=== PATIENT | male | born 1970 ===

== ENCOUNTER 2017-04-23 02:22 | Emergency (ER) | payer OTHER ==
[~2017-04-23] VITALS: Ht 160 cm; Wt 108.9 kg
[2017-04-23 02:37] VITALS: BP 158/87
[2017-04-23] MEDS ORDERED: Lidocaine 2% 20mg/ml/Epi 0.005mg/ml 20ml vial INJ ONE (03:00)
[2017-04-23] MEDS ORDERED: KEFLEX500 MG ORAL (03:20)
[2017-04-23] MEDS ORDERED: NORCO 5-325 TA1 EAC1 ORAL (03:20)
[2017-04-23 03:27] VITALS: BP 141/91
--- NOTE | 2017-04-23 03:29 | Emergency Room Report ---
History of Present Illness General Chief Complaint: Skin Rash/Abscess Source: Patient Present Illness HPI Patient is a 47-year-old male who presented after increased neck pain for the past 7 days. Patient recently been seen by physician started on oral Bactrim. Patient had gradual onset of symptoms the patient noticed the area had become increasingly swollen. He denied any fever. Patient stated that he had some improvement temperature over the past 2 days. The patient reported having increased difficulty with movement of his neck. Allergies: Coded Allergies: No Known Allergies (Unverified , 04/23/17) Patient History Past Medical History: see triage record Reviewed Nursing Documentation: PMH: Agreed, PSxH: Agreed Nursing Documentation-PMH Past Medical History: No Stated History Review of Systems All Other Systems: negative except mentioned in HPI Physical Exam Vital Signs Date Time Temp Pulse Resp B/P (MAP) Pulse Ox O2 Delivery O2 Flow Rate FiO2 04/23/17 02:26 97.5 66 18 158/87 98 Room Air General Appearance: well appearing, no apparent distress, alert, GCS 15 Head: normocephalic, atraumatic ENT: hearing grossly normal, normal voice Neck: supple, limited range of motion Respiratory: no respiratory distress, speaking full sentences Gastrointestinal: normal bowel sounds Musculoskeletal: no calf tenderness Neurologic: normal inspection, alert, oriented x3, normal gait Psychiatric: mood/affect normal Skin: other - large fluctuance to posterior of neck. Procedures Incision and Drainage Incision and Drainage : Consent: Verbal Site: neck Blade Size: 15 I & D Procedure: betadine prep, sterile drapes applied, sterile dressing applied Wound Location: neck Wound's Depth, Shape: into muscle Wound Length (cm): 2 Wound Explored: clean Irrigated w/ Saline (ccs): 10 Anesthesia: Lidocaine w/ Epi Volume Anesthetic (ccs): 4 Patient Tolerated: Well Complications: None Medical Decision Making Diagnostic Impression: Primary Impression: Abscess ER Course Patient presented for skin rash. Differential diagnosis included was not limited to abscess, cellulitis, folliculitis. Patient's benign exam and does not appear to require any further imaging or laboratory testing at this time. The patient was consented for incision and drainage. The drained a moderate amount of pus from incision. Patient given prescription for Keflex as well as pain medication. Patient was taken off work for 2 days Last Vital Signs Date Time Temp Pulse Resp B/P (MAP) Pulse Ox O2 Delivery O2 Flow Rate FiO2 04/23/17 02:41 66 04/23/17 02:37 97.5 18 158/87 98 Room Air Status: improved Disposition: HOME, SELF-CARE Condition: Stable Scripts Hydrocodone Bit/Acetaminophen 5-325* (NORCO 5-325 TABLET*) 1 Each Tablet 1 TAB ORAL Q4H Y for For Pain, #10 TAB Prov: Corby Freeman 04/23/17 Cephalexin* (KEFLEX*) 500 Mg Capsule 500 MG ORAL Q6H, #28 CAP 0 Refills Prov: Corby Freeman 04/23/17 Patient Instructions: Corby Ching Apr 23, 2017 03:29
== END 2017-04-23 03:27 | disposition home or self-care (01) ==
LOC: EMR 03:05
DX: L02.11 Cutaneous abscess of neck (principal)
CPT/HCPCS: 10060; 99284